=== PATIENT | female | born 1960 | race Caucasian/White ===

== ENCOUNTER → 2019-07-21 | Outpatient (REF) | payer BC | LOC: M LAB LCGH 12:22 | PROVIDERS: ATTEND Obstetrics & Gynecology | DX: R10.2 Pelvic and perineal pain (principal); Z90.710 Acquired absence of both cervix and uterus ==

== ENCOUNTER → 2020-05-02 | Outpatient (REF) | payer BC | LOC: M LAB REF 18:42 | PROVIDERS: ATTEND Physician Assistant | DX: L57.0 Actinic keratosis (principal) ==